=== PATIENT | male | born 1955 ===

== ENCOUNTER 2024-07-07 09:45 | Outpatient (CLI) | payer MEDICARE, SELFPAY ==
[2024-07-07 10:11] VITALS: BMI 32.0
--- NOTE | 2024-07-07 10:15 | ECG_ITS ---
[facility] Test Date: 2024-07-07 Pat Name: Andry Urban Department: Room: Gender: Male Psych Arnp: : 1955 Requested By: Sundar Bedoya Order Number: [id number] Reading MD: CHRISTEN GLEASON Interpretive Statements Lung unchanged pre/post procedure; Intraprocedure shortess of breath; Symptoms resoled by discharge EXERCISE DATA: The patient was exercised by Max protocol. Baseline heart rate was 103 beats per minute. Baseline blood pressure was 165/93 millimeters of mercury. Target heart rate was 151 beats per minute. Maximum heart rate achieved was 138, which was 91 % of the target heart rate. Maximum blood pressure was 212/106 millimeters of mercury. Total exercise time was 4 minutes 18 seconds. Maximum METs achieved was 7.0, maximum VO2 was 24.5. The reason for ending the test was maximum effort achieved. The patient complained of during the stress test, which then resolved at the end of the test. ELECTROCARDIOGRAM: BASELINE: Showed sinus rhythm, normal axis, no significant ST-T changes at the baseline noted. EXERCISE: At the peak exercise level, no significant ST-T changes suggestive of ischemia noted. RECOVERY: During the recovery period, heart rate dropped appropriately. No significant ST-T changes in the recovery suggestive of ischemia noted. CONCLUSION: 1. Exercise capacity fair. 2. Heart rate response was appropriate. 3. Blood pressure response was hypertensive. 4. Symptoms not suggestive of ischemia. 5. Electrocardiogram portion of the stress test was not suggestive of ischemia. . Electronically Signed On 07-21-2024 20:26:06 CDT by CHRISTEN GLEASON [email or web address]
[2024-07-07 10:34] VITALS: BP 173/70; PULSE 81
== END 2024-07-07 09:46 | disposition home or self-care (01) ==
LOC: CDL 09:48
PROVIDERS: PCP Family Medicine; Visit Provider Family Medicine
DX: R07.9 Chest pain, unspecified (principal); R93.1 Abnormal findings on diagnostic imaging of heart and coronary circulation
CPT/HCPCS: 93017